=== PATIENT | female | born 1950 | race African-American/Black ===

== ENCOUNTER → 2016-07-28 | Outpatient (CLI) | payer MEDICARE, OTHER ==
[2015-07-10 11:05] VITALS: BP 127/75
[~2016-07-28] MED LIST: ASPI81TA9 PO; ATOR40TA PO; CALC-371 PO; CHOL10007 PO; CLOP75TA PO; CYCL10TA2 PO; CYPR4TAB PO; FLUT9.9S NS; FOLI1TAB6 PO; GUAI600T6 PO; HYDR-2679 PO; MELO15TA6 PO; METF500T4 PO; METO100T11 PO; PIME30CR2 TP; RANI150T6 PO; TRIA15CR3 TP; TRIA80OI TP
--- NOTE | 2016-07-28 11:29 | CARD ---
APPROVED REPORT EXAM: Two-dimensional and M-mode echocardiogram with Doppler and color Doppler. Other Information Quality : GoodHR: 94bpm Rhythm : NSR INDICATION Cardiac Disease: CAD RISK FACTORS Hypertension Obesity Hyperlipidemia Family History Diabetes Smoking Previous smoker 2D DIMENSIONS RVDd3.1 (2.9-3.5cm)Left Atrium(2D)3.5 (1.6-4.0cm) IVSd0.8 (0.7-1.1cm)Aortic Root(2D)2.8 (2.0-3.7cm) LVDd5.1 (3.9-5.9cm)LVOT Diameter2.1 (1.8-2.4cm) PWd0.7 (0.7-1.1cm)LVDs3.5 (2.5-4.0cm) FS (%) 30.9 %SV71.9 ml LVEF(%)58.2 (>50%) Aortic Valve AoV Peak Go.130.5cm/sAoV VTI27.0cm AO Peak GR.6.8mmHgLVOT Peak Go.82.8cm/s AO Mean GR.4mmHgAVA (VMAX)2.28cm2 Mitral Valve MV E Wfmuyauc51.8cm/sMV E Peak Gr.5mmHg MV DECEL [id number] A Mnsfywfq594.1cm/s MV E Mean Gr.2mmHgE/A Ratio0.6 MV A Mttvdrdq80xd Pulmonary Valve PV Peak Dnxtrmeg40.3cm/s Pulmonary Vein S1 Jubzuode72.8cm/sD2 Syjahndi69.9cm/s PVa uxyvccjr55lqac LEFT VENTRICLE The left ventricle is normal size. There is normal left ventricular wall thickness. The left ventricu lar systolic function is normal. The Ejection Fraction is 55%. There is normal LV segmental wall hawa on. Transmitral Doppler flow pattern is Grade I-abnormal relaxation pattern. RIGHT VENTRICLE The right ventricle is normal size. There is normal right ventricular wall thickness. The right ventr icular systolic function is normal. ATRIA The left atrium size is normal. The right atrium size is normal. The interatrial septum is intact wit h no evidence for an atrial septal defect or patent foramen ovale as noted on 2-D or Doppler imaging. AORTIC VALVE The aortic valve is mildly sclerotic. The aortic valve is trileaflet. Doppler and Color Flow revealed trace aortic regurgitation. There is no significant aortic valvular stenosis. MITRAL VALVE Mitral annular calcification is mild. The mitral valve leaflets are mildly thickened. There is no thu dence of mitral valve prolapse. There is no mitral valve stenosis. Doppler and Color Flow revealed mi ld mitral regurgitation. TRICUSPID VALVE Doppler and Color Flow revealed no tricuspid valve regurgitation noted. There is no pulmonary hyperte nsion. PULMONIC VALVE Doppler and Color Flow revealed no pulmonic valvular regurgitation. There is no pulmonic valvular flako nosis. GREAT VESSELS The aortic root is normal in size. The ascending aorta is normal in size. The pulmonary artery is nor mal. The IVC is normal in size and collapses >50% with inspiration. PERICARDIAL EFFUSION There is no evidence of significant pericardial effusion. Critical Notification Critical Value: No <Conclusion> The left ventricular systolic function is normal. The Ejection Fraction is 55%. There is normal LV segmental wall motion. Transmitral Doppler flow pattern is Grade I-abnormal relaxation pattern. Trace aortic regurgitation. Mild mitral regurgitation. There is no evidence of significant pericardial effusion.
== END | disposition home or self-care (01) ==
LOC: ECHO 09:58
PROVIDERS: ATTEND Internal Medicine Cardiovascular Disease
DX: I08.0 Rheumatic disorders of both mitral and aortic valves (principal); I25.10 Atherosclerotic heart disease of native coronary artery without angina pectoris
CPT/HCPCS: 93306

== ENCOUNTER → 2017-01-04 | Day surgery (SDC) | payer MEDICARE, OTHER ==
[~2017-01-04] MED LIST changes: +ASPI-612 PO; -ASPI81TA9 PO; +CHOL100014 PO; -CHOL10007 PO; +HYDROmorphone 2 MG/ML VIAL IV PRN; +IV RINGERS,LACTATED 1000ML 1,000 ML IV SCH; +LIDOCAINE 1% PF 2 ML VIAL. ID PRN; +LIDOCAINE 2% PF Vial for OR 5 ML VIAL. ONE; +METO-247 PO; -METO100T11 PO; +METOPROLOL TARTRATE 5 MG/5 ML VIAL. IVP ONE; +MORPHINE SULFATE 2 MG/ML DISP.SYRIN. IV PRN; +ONDANSETRON PF 4 MG/2 ML VIAL. IV PRN; +PROCHLORPERAZINE 10 MG/2 ML VIAL. IV PRN; +PROPOFOL 40 ML IV ONE; +fentaNYL PF VIAL 100 MCG/2 ML VIAL IV PRN
[2017-01-04 08:28] VITALS: BP 117/73
== END | disposition home or self-care (01) ==
LOC: ENDOS 06:35
PROVIDERS: ATTEND Internal Medicine Gastroenterology
DX: Z09 Encounter for follow-up examination after completed treatment for conditions other than malignant neoplasm (principal); Z86.010 Personal history of colon polyps; K64.0 First degree hemorrhoids; K57.30 Diverticulosis of large intestine without perforation or abscess without bleeding; I25.10 Atherosclerotic heart disease of native coronary artery without angina pectoris; E78.00 Pure hypercholesterolemia, unspecified; E11.51 Type 2 diabetes mellitus with diabetic peripheral angiopathy without gangrene; K21.9 Gastro-esophageal reflux disease without esophagitis; F17.200 Nicotine dependence, unspecified, uncomplicated; Z87.39 Personal history of other diseases of the musculoskeletal system and connective tissue; Z86.39 Personal history of other endocrine, nutritional and metabolic disease; Z88.6 Allergy status to analgesic agent
CPT/HCPCS: 45378; J2704; J3490; J2001

== ENCOUNTER → 2017-08-04 | Outpatient (CLI) | payer MEDICARE, OTHER | END | disposition home or self-care (01) | LOC: MAMMO 08:24 | DX: Z12.31 Encounter for screening mammogram for malignant neoplasm of breast (principal) | CPT/HCPCS: 77063; 77067 ==

== ENCOUNTER → 2017-09-21 | Outpatient (CLI) | payer MEDICARE, OTHER ==
[~2017-09-21] MED LIST changes: -ASPI-612 PO; -ATOR40TA PO; -CALC-371 PO; -CHOL100014 PO; -CLOP75TA PO; -CYCL10TA2 PO; -CYPR4TAB PO; -FLUT9.9S NS; -FOLI1TAB6 PO; -GUAI600T6 PO; -HYDR-2679 PO; -HYDROmorphone 2 MG/ML VIAL IV PRN; +IOHEXOL 300 MG/ML 50 ML VIAL. INT ART; -IV RINGERS,LACTATED 1000ML 1,000 ML IV SCH; -LIDOCAINE 1% PF 2 ML VIAL. ID PRN; -LIDOCAINE 2% PF Vial for OR 5 ML VIAL. ONE; -MELO15TA6 PO; -METF500T4 PO; -METO-247 PO; -METOPROLOL TARTRATE 5 MG/5 ML VIAL. IVP ONE; -MORPHINE SULFATE 2 MG/ML DISP.SYRIN. IV PRN; -ONDANSETRON PF 4 MG/2 ML VIAL. IV PRN; -PIME30CR2 TP; -PROCHLORPERAZINE 10 MG/2 ML VIAL. IV PRN; -PROPOFOL 40 ML IV ONE; -RANI150T6 PO; -TRIA15CR3 TP; -TRIA80OI TP; -fentaNYL PF VIAL 100 MCG/2 ML VIAL IV PRN
[2017-09-21] MEDS: IOHEXOL 180 MG/ML 10 ML VIAL. INT ART (11:10)
[2017-09-21] MEDS: LIDOCAINE 1% Multi-Dose 20 ML VIAL. ID (11:10)
== END | disposition home or self-care (01) ==
LOC: KCIC 10:04
DX: S43.491A Other sprain of right shoulder joint, initial encounter (principal); M75.121 Complete rotator cuff tear or rupture of right shoulder, not specified as traumatic; M19.011 Primary osteoarthritis, right shoulder; I10 Essential (primary) hypertension; E11.9 Type 2 diabetes mellitus without complications; E78.5 Hyperlipidemia, unspecified; K21.9 Gastro-esophageal reflux disease without esophagitis; X58.XXXA Exposure to other specified factors, initial encounter; Y93.89 Activity, other specified; Y92.89 Other specified places as the place of occurrence of the external cause; Y99.8 Other external cause status
CPT/HCPCS: 73040; 73201; Q9965

== ENCOUNTER → 2017-10-11 | Outpatient (CLI) | payer MEDICARE, OTHER ==
[2017-10-11 15:09] LABS: ADD MAN DIFF? NO
[2017-10-11 15:13] LABS: BASO # 0.1 x10^3/uL (0.0-0.2); BASO % 1 % (0-3); EOS # 0.3 x10^3/uL (0.0-0.7); EOS % 3 % (0-3); HEMATOCRIT 37.3 % (36.0-47.0); HEMOGLOBIN 12.4 g/dL (12.0-15.5); LYMPH # 2.9 x10^3/uL (1.0-4.8); LYMPH % 29 % (24-48); MEAN CORPUSCULAR HEMOGLOBIN 28 pg (25-35); MEAN CORPUSCULAR HGB CONC 33 g/dL (31-37); MEAN CORPUSCULAR VOLUME 83 fL (79-100); MONO # 0.8 x10^3/uL (0.0-1.1); MONO % 8 % (0-9); NEUT % 60 % (31-73); PLATELET COUNT 353 x10^3/uL (140-400); RED BLOOD COUNT 4.49 x10^6/uL (3.50-5.40); RED CELL DISTRIBUTION WIDTH 15.1 % (11.5-14.5); WHITE BLOOD COUNT 10.1 x10^3/uL (4.0-11.0)
[2017-10-11 15:14] LABS: BILIRUBIN,URINE NEGATIVE (NEG); CLARITY,URINE CLOUDY; COLOR,URINE YELLOW; GLUCOSE,URINE NEGATIVE (NEG); NITRITE,URINE NEGATIVE (NEG); PH,URINE 5.5; PROTEIN,URINE NEGATIVE (NEG-TRACE); UROBILINOGEN,URINE 0.2 mg/dL (0.2 mg/dL)
[2017-10-11 15:24] LABS: INR 0.9 (0.8-1.1); PARTIAL THROMBOPLASTIN TIME 27 SEC (24-38)
[2017-10-11 15:27] LABS: ALBUMIN 3.7 g/dL (3.4-5.0); ANION GAP 9 (6-14); BLOOD UREA NITROGEN 9 mg/dL (7-20); CALCIUM 9.7 mg/dL (8.5-10.1); CARBON DIOXIDE 27 mmol/L (21-32); CHLORIDE 105 mmol/L (98-107); GFR 66.9; GLUCOSE 98 mg/dL (70-99); POTASSIUM 4.4 mmol/L (3.5-5.1); SODIUM 141 mmol/L (136-145)
[2017-10-11 15:31] LABS: BACTERIA,URINE MANY /HPF (0-FEW); SQUAMOUS EPITHELIAL CELL,UR MANY /LPF; WBC,URINE >40 /HPF (0-4)
[2017-10-11 16:31] LABS: SEDIMENTATION RATE 22 (0-25)
[2017-10-12 00:16] LABS: MRSA BY PCR Negative (Negative)
[2017-10-12 03:22] LABS: HEMOGLOBIN A1C 6.6 % (4.8-5.6)
== END | disposition home or self-care (01) ==
LOC: SURGPAT 14:24
DX: Z01.818 Encounter for other preprocedural examination (principal); R94.31 Abnormal electrocardiogram [ECG] [EKG]; E11.9 Type 2 diabetes mellitus without complications; I10 Essential (primary) hypertension; E78.5 Hyperlipidemia, unspecified
CPT/HCPCS: 36415; 71046; 80048; 81001; 82040; 83036; 85025; 85610; 85651; 85730; 87086; 87641; 93005

== ENCOUNTER 2017-10-28 08:15 | Emergency (ER) | payer MEDICARE, OTHER ==
[~2017-10-28] VITALS: Ht 162.6 cm; Wt 96.2 kg
[~2017-10-28 08:15] MED LIST changes: +ASPI-612 PO; +ATOR40TA PO; +CALC-371 PO; +CHOL100014 PO; +CLOP75TA PO; +CYCL10TA2 PO; +CYPR4TAB31 PO; +DOCU-109 PO; +FLUT9.9S NS; +FOLI1TAB6 PO; +GLUC1TAB69 PO; +GUAI600T6 PO; +HYDR-2679 PO; +HYDR15CR20 TP; -IOHEXOL 300 MG/ML 50 ML VIAL. INT ART; +MELO15TA6 PO; +METF500T5 PO; +METO-247 PO; +NITR0.4T22 SL; +OXYC-323 PO; +PIME30CR2 TP; +RANI150T21 PO; +TRIA15CR3 TP; +TRIA80OI TP
[2017-10-28 08:21] VITALS: BP 144/73
--- NOTE | 2017-10-28 08:30 | PHYS DOC ---
Adult General Chief Complaint Chief Complaint: OTHER COMPLAINTS HPI HPI Patient is a 66 year old female presents to the ED for wound check. States she had rotator cuff surgery by Dr. Burch on last Monday. States she had some of the dressing fall out and wanted to get it checked out. Denies fever, drainage, headache, weakness, nausea/vomiting or redness. Review of Systems Review of Systems Constitutional: Denies fever or chills [] Eyes: Denies change in visual acuity, redness, or eye pain [] HENT: Denies nasal congestion or sore throat [] Respiratory: Denies cough or shortness of breath [] Cardiovascular: No additional information not addressed in HPI [] GI: Denies abdominal pain, nausea, vomiting, bloody stools or diarrhea [] : Denies dysuria or hematuria [] Musculoskeletal: Denies back pain or joint pain [] Integument: Denies rash or skin lesions [] Neurologic: Denies headache, focal weakness or sensory changes [] All other systems were reviewed and found to be within normal limits, except as documented in this note. Allergies Allergies Allergies Coded Allergies Type Severity Reaction Last Updated Verified aspirin Allergy Mild STOMACH PAIN 10/25/17 Yes Physical Exam Physical Exam Constitutional: Well developed, well nourished, no acute distress, non-toxic appearance. [] HENT: Normocephalic, atraumatic Neck: Normal range of motion, no tenderness, supple, no stridor. [] Cardiovascular:Heart rate regular rhythm, no murmur [] Lungs & Thorax: Bilateral breath sounds clear to auscultation [] Skin: Warm, dry, no erythema, no rash. [] Back: No tenderness, no CVA tenderness. [] Extremities: Right shoulder surgical incisions healing well. C/D/I. No signs of infection, drainage, or dehiscence. no bony tenderness, no cyanosis, no clubbing , NV intact, no edema. [] Neurologic: Alert and oriented X 3, normal motor function, normal sensory function, no focal deficits noted. [] Psychologic: Affect normal, judgement normal, mood normal. [] Current Patient Data Vital Signs Vital Signs Date Time Temp Pulse Resp B/P (MAP) Pulse Ox O2 Delivery O2 Flow Rate FiO2 10/28/17 08:21 98.1 73 16 144/73 (96) 97 98.1 EKG EKG [] Radiology/Procedures Radiology/Procedures [] Course & Med Decision Making Course & Med Decision Making Pertinent Labs and Imaging studies reviewed. (See chart for details) []Wound healing well. No complications. Dressing change for patient. Patient scheduled for follow-up with her orthopedic doctor this coming week. Discussed reasons to return to the ED. Patient understands and agrees with plan. Family at bedside. Staff Physician Addendum: I was working in the ER during the course of this patient's visit. I was available for consultation as needed, but I was not directly involved in the care of this patient. Stefano Barger DO Staff Physician Dragon Disclaimer Dragon Disclaimer This electronic medical record was generated, in whole or in part, using a voice recognition dictation system. Departure Departure Impression: Primary Impression: Visit for wound check Disposition: 01 HOME, SELF-CARE Condition: STABLE Referrals: ESPERANZA ESTRADA MD (PCP) OLY BURCH II, MD Patient Instructions: Wound Check DIVINA HERNANDEZ Oct 28, 2017 08:30 STEFANO BARGER DO Oct 29, 2017 06:18
== END 2017-10-28 08:39 | disposition home or self-care (01) ==
LOC: ER 08:15
DX: Z48.01 Encounter for change or removal of surgical wound dressing (principal); Z88.2 Allergy status to sulfonamides
CPT/HCPCS: 99283

== ENCOUNTER → 2018-01-10 | Outpatient (CLI) | payer MEDICARE, OTHER ==
[2017-01-04 08:28] VITALS: BP_DIAS 73
[2017-10-28 08:21] VITALS: BP_SYST 144
[~2018-01-10] MED LIST changes: +METF500T16 PO; -METF500T5 PO
--- NOTE | 2018-01-10 10:15 | CARD ---
MR#: [id number] Date of Study: 01/10/2018 Ordering Physician: BLOSSOM WEBBER, Referring Physician: BLOSSOM WEBBER Tech: Hellen Velez RDCS APPROVED REPORT EXAM: Two-dimensional and M-mode echocardiogram with Doppler and color Doppler. Other Information Quality : GoodHR: 81bpm Rhythm : NSR INDICATION Cardiac Disease: CAD 2D DIMENSIONS RVDd2.2 (2.9-3.5cm)Left Atrium(2D)3.3 (1.6-4.0cm) IVSd0.9 (0.7-1.1cm)Aortic Root(2D)2.8 (2.0-3.7cm) LVDd4.7 (3.9-5.9cm)LVOT Diameter1.9 (1.8-2.4cm) PWd1.1 (0.7-1.1cm)LVDs3.5 (2.5-4.0cm) FS (%) 25.3 %SV50.5 ml M-Mode DIMENSIONS Left Atrium(MM)2.80 (2.5-4.0cm)Aortic Root2.86 (2.2-3.7cm) Aortic Valve AoV Peak Go.136.2cm/sAoV VTI26.2cm AO Peak GR.7.4mmHgLVOT Peak Go.65.6cm/s AO Mean GR.4mmHgAVA (VMAX)1.41cm2 ZO (VTI)1.70cm2 Mitral Valve MV E Xldlmera40.2cm/sMV E Peak Gr.3mmHg MV DECEL VKPE679tzSH A Wqntbzoq59.0cm/s MV E Mean Gr.1mmHgE/A Ratio0.8 MV A Groxkwtb645ak Pulmonary Valve PV Peak Iyuajpsx50.5cm/s LEFT VENTRICLE The left ventricle is normal size. There is normal left ventricular wall thickness. The left ventricu lar systolic function is normal and the ejection fraction is within normal range. The Ejection Fracti on is 50-55%. There is normal LV segmental wall motion. Transmitral Doppler flow pattern is Grade I-a bnormal relaxation pattern. RIGHT VENTRICLE The right ventricle is normal size. There is normal right ventricular wall thickness. The right ventr icular systolic function is normal. ATRIA The left atrium size is normal. The right atrium size is normal. The interatrial septum is intact wit h no evidence for an atrial septal defect or patent foramen ovale as noted on 2-D or Doppler imaging. AORTIC VALVE The aortic valve is trileaflet. The aortic valve is normal in structure and function. Doppler and Col or Flow revealed no significant aortic regurgitation. There is no significant aortic valvular stenosi s. MITRAL VALVE The mitral valve is normal in structure and function. There is no evidence of mitral valve prolapse. There is no mitral valve stenosis. Doppler and Color-flow revealed trace mitral regurgitation. TRICUSPID VALVE The tricuspid valve is normal in structure and function. Doppler and Color Flow revealed no tricuspid valve regurgitation noted. There is no tricuspid valve prolapse or vegetation. There is no tricuspid valve stenosis. PULMONIC VALVE Not well visualized. GREAT VESSELS The aortic root is normal in size. The ascending aorta is normal in size. PERICARDIAL EFFUSION There is no evidence of significant pericardial effusion. Critical Notification Critical Value: No <Conclusion> The left ventricle is normal size. The left ventricular systolic function is normal and the ejection fraction is within normal range. The Ejection Fraction is 50-55%. There is no significant aortic valvular stenosis. Doppler and Color Flow revealed no significant aortic regurgitation. Doppler and Color-flow revealed trace mitral regurgitation. Doppler and Color Flow revealed no tricuspid valve regurgitation noted. Signed by : Ryne Henderson MD Electronically Approved : 01/10/2018 10:14:42
== END | disposition home or self-care (01) ==
LOC: ECHO 08:58
PROVIDERS: ATTEND Internal Medicine Cardiovascular Disease
DX: I25.10 Atherosclerotic heart disease of native coronary artery without angina pectoris (principal)
CPT/HCPCS: 93306

== ENCOUNTER → 2018-08-08 | Outpatient (CLI) | payer MEDICARE, OTHER ==
[~2018-08-08] MED LIST changes: -OXYC-323 PO; +OXYC1TAB15 PO; +RANI-376 PO; -RANI150T21 PO
--- NOTE | 2018-08-08 10:03 | RAD ---
DATE: 08/08/2018 EXAM: MAMMO GINA SCREENING BILATERAL HISTORY: Routine screening COMPARISON: 08/04/2017 This study was interpreted with the benefit of Computerized Aided Detection (CAD). Breast Density: HETERO The breast parenchyma is heterogenously dense, which could reduce sensitivity of mammography. Breast parenchyma level C. FINDINGS: 2-D and 3-D tomosynthesis imaging was performed in CC and MLO projections. Smooth 12:00 retroareolar and posterolateral nodules in the right breast appear unchanged. No spiculated mass or architectural distortion is evident. Scattered benign type calcifications are present. No suspicious microcalcifications have developed. IMPRESSION: Stable mammograms without evidence of malignancy. BI-RADS CATEGORY: 2 BENIGN FINDING(S) RECOMMENDED FOLLOW-UP: 12M 12 MONTH FOLLOW-UP PQRS compliance statement: Patient information was entered into a reminder system with a target due date for the next mammogram. Mammography is a sensitive method for finding small breast cancers, but it does not detect them all and is not a substitute for careful clinical examination. A negative mammogram does not negate a clinically suspicious finding and should not result in delay in biopsying a clinically suspicious abnormality. "Our facility is accredited by the [employer] Mammography Program."
== END | disposition home or self-care (01) ==
LOC: MAMMO 08:53
PROVIDERS: ATTEND Family Medicine
DX: Z12.31 Encounter for screening mammogram for malignant neoplasm of breast (principal)
CPT/HCPCS: 77063; 77067

== ENCOUNTER → 2019-01-17 | Outpatient (CLI) | payer MEDICARE, OTHER ==
--- NOTE | 2019-01-17 17:01 | KCIC ---
EXAM: RIGHT TIBIA/FIBULA 2 VIEWS. HISTORY: Right leg pain. COMPARISON: None. FINDINGS: No fractures are identified. An ossicle at the inferior pole of the patella suggests chronic Vpfcdnc-Kqmtmc-Irdutuxxp syndrome versus enthesopathy. There is also enthesopathic ossification at the patellar superior pole. Scattered phleboliths and atherosclerotic calcifications are noted. 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 The joint spaces and alignment of the knee and ankle appear grossly maintained. IMPRESSION: 1. No cause for acute pain is identified. Electronically signed by: Annamaria Saxena MD (01/17/2019 4:58 PM) [facility]
== END | disposition home or self-care (01) ==
LOC: KCIC 14:07
PROVIDERS: ATTEND Nurse Practitioner Gerontology
DX: M19.071 Primary osteoarthritis, right ankle and foot (principal); I87.8 Other specified disorders of veins
CPT/HCPCS: 73590

== ENCOUNTER → 2019-02-12 | Outpatient (CLI) | payer MEDICARE, OTHER ==
[~2019-02-12] MED LIST changes: +NYST100054 PO; +REGADENOSON 0.4 MG/5 ML DISP.SYRIN. IV ONE
--- NOTE | 2019-02-13 11:00 | RAD ---
MR#: [id number] Date of Study: 02/13/2019 Ordering Physician: BLOSSOM WEBBER, Referring Physician: MARY BETH TORRES Tech: AILYN Kurtz, ARRT (R) (N) APPROVED REPORT Test Type: Pharmacological Stress Nurse/Tech: Sandy Jean Baptiste R.N. Test Indications: cad Cardiac History: stents x 4, dm, cad Medications: see ehr Medical History: see ehr Resting ECG: sr see printout Resting Heart Rate: 84 bpm Resting Blood Pressure: 138/70mmHg Pretest Chest Pain: No chest pain Nurse/Tech Notes lungs cta, heart tones regular Consent: The procedure was explained to the patient in lay terms. Informed consent was witnessed. Cordell eout was entered into [employer]. History and Stress Test performed by RT João (R) (N) Pharm. Details Pharmacologic stress testing was performed using 0.4mg per 5ml of regadenoson given intravenously ove r 7-10 seconds. Stress Symptoms No chest pain or symptoms. POST EXERCISE Reason for Termination: Infusion complete Target HR: No Max HR: 111 bpm Max Blood Pressure: 129/64mmHg Chest Pain: No. Arrhythmia: Yes. occasional unifocal PVC noted ST Change: Yes. ST elevation increased and then resolved to baseline in II and III INTERPRETATION Stress EKG Conclusion: No evidence of stress induced EKG changes Imaging Protocol IMAGE PROTOCOL: Rest Tc-99m/stress Tc-99m 2 days Rest: Stress: Viability: Radiopharm.Tc99m UsaejdfejKy14y Sestamibi Ngwz36bQr 31.6mCi Img Date 02/12/2019 02/13/2019 Inj-Img Chqn51cmm. 60min. Rest Admin Site:IV - Left AntecubitalAdministrator:RT Laurie Moyer)(N) Stress Admin Site: IV - Left AntecubitalAdministrator: RT Laurie Moyer)(N) STRESS DATA End Diast. Vol.65.0mlAv. Heart Rate88.0bpm End Syst. Vol.24.0mlCO Index BSA3.7L/min Myocardial Oxle111.0gEject. Vhkjhilu39.0% Stress Rates Pk. Fill Rate3.87EDV/secLVtime Pk. Fill 113.19msec Pk. Empty Rate3.86ESV/secLVtime Pk. Eject81.63msec / Pk. Fill1.92EDV/sec Stress Scores Regional WT2.00Summed WT23.00 Regional WM0.00Summed WM5.00 LV Perfusion Normal perfusion with stress images. There is significant motion artifact. No significant abnormaliti es on the stress images. Rest images are degraded by attenuation artifact. LV Perf. Quant 17 Seg. SSS1.00 17 Seg. SRS9.00 17 Seg. SDS0.00 Stress Defect Extent (% LAD)0.00Rest Defect Extent (% LAD)7.50Rev. Defect Extent (% LAD)0.00 Stress Defect Extent (% LCX) 0.00Rest Defect Extent (% LCX)62.50Rev. Defect Extent (% LCX)0.00 Stress Defect Extent (% RCA)0.00Rest Defect Extent (% RCA)0.00Rev. Defect Extent (% RCA)0.00 Stress Defect Extent (% FROY)0.00Rest Defect Extent (% FROY)15.20Rev. Defect Extent (% FROY)0.00 Other Information Quality:Fair Risk Assessment: Low Risk Conclusion 1. No evidence of EKG changes with stress testing. 2. Normal perfusion at stress. Rest images are degraded due to motion artifact and attenuation. 3. Low risk study. 4. EF > 60%. Signed by : Raheem Gandhi, Electronically Approved : 02/13/2019 11:00:09
== END ==
LOC: NM 07:37
PROVIDERS: ATTEND Internal Medicine Cardiovascular Disease
DX: I25.10 Atherosclerotic heart disease of native coronary artery without angina pectoris (principal); I10 Essential (primary) hypertension; E11.9 Type 2 diabetes mellitus without complications; E78.00 Pure hypercholesterolemia, unspecified; M19.90 Unspecified osteoarthritis, unspecified site; K21.9 Gastro-esophageal reflux disease without esophagitis; Z87.891 Personal history of nicotine dependence
CPT/HCPCS: 78452; A9500; J2785

== ENCOUNTER → 2019-02-13 | Outpatient (CLI) | payer MEDICARE, OTHER ==
--- NOTE | 2019-02-13 11:09 | RAD ---
MR#: [id number] Date of Study: 02/13/2019 Ordering Physician: BLOSSOM WEBBER, Referring Physician: BLOSSOM WEBBER, Tech: Antonino Younger MBA, RDMS, RVT, RDCS, RTR APPROVED REPORT Patient Location: OUT-PATIENT Indications CAD VELOCITY AND DOPPLER WAVEFORM ANALYSIS RIGHT cm/secWaveformSeverity LEFT cm/secWaveform Severity dCFA 152.0TriphasicdCFA 176.0Triphasic Prof Fem Art. 96.0TriphasicProf Fem Art. 89.0Triphasic Fem Art Prox. 146.0TriphasicFem Art Prox. 116.0Triphasic Fem Art Mid. 114.0TriphasicFem Art Mid. 116.0Triphasic Fem Art Dist. 114.0TriphasicFem Art Dist. 129.0Triphasic Pop Art(Fossa) 60.0TriphasicPop Art(AK) 62.0Biphasic STAFFING ASSOCIATE Prox. 43.0BiphasicPTA Prox. 63.0Biphasic STAFFING ASSOCIATE Dist. 48.0BiphasicPTA Dist. 60.0Biphasic Per Art Mid. 46.0BiphasicPer Art Mid. 39.0Biphasic ABDIEL Prox. 50.0BiphasicATA Prox. 56.0Biphasic DPA 44BiphasicDPA 44Biphasic Findings Grayscale images demonstrate mild diffuse irregularities without any focal high-grade obstruction. Spectral waveforms and color Doppler involving the bilateral lower extremities are mostly triphasic a nd biphasic with robust three-vessel runoff below the knee. No focal high-grade stenosis is identifie d. The bilateral common femoral arterial velocities are mildly elevated but no clear stenosis is noted g iven excellent triphasic waveforms distal to the common femoral arteries. Critical Notification Critical Value: No <Conclusion> 1. No significant bilateral lower extremity arterial disease with robust three-vessel runoff Signed by : Raheem Gandhi, Electronically Approved : 02/13/2019 11:09:33
--- NOTE | 2019-02-13 11:14 | CARD ---
MR#: [id number] Date of Study: 02/13/2019 Ordering Physician: BLOSSOM WEBBER, Referring Physician: BLOSSOM WEBBER Tech: Vivien Otoole RDCS APPROVED REPORT EXAM: Two-dimensional and M-mode echocardiogram with Doppler and color Doppler. Other Information Quality : Good INDICATION Cardiac Disease: CAD 2D DIMENSIONS RVDd2.7 (2.9-3.5cm)Left Atrium(2D)3.0 (1.6-4.0cm) IVSd0.8 (0.7-1.1cm)Aortic Root(2D)2.6 (2.0-3.7cm) LVDd4.9 (3.9-5.9cm)LVOT Diameter2.1 (1.8-2.4cm) PWd0.9 (0.7-1.1cm)LVDs3.9 (2.5-4.0cm) FS (%) 19.0 %SV43.2 ml LVEF(%)50.0 (>50%) Aortic Valve AoV Peak Go.136.8cm/sAoV VTI23.1cm AO Peak GR.7.5mmHgLVOT Peak Go.90.5cm/s AO Mean GR.5mmHgAVA (VMAX)2.20cm2 ZO (VTI)2.20cm2 Mitral Valve MV E Llfqavar42.8cm/sMV DECEL AMHT479sd MV A Xdvgbcui64.0cm/sE/A Ratio0.6 Tricuspid Valve TR P. Hxhoskat051xo/sRAP LKSZLPYH6ftPm TR Peak Gr.36hwUcNYTG98pbNb Pulmonary Vein S1 Pkrgviyp35.7cm/sD2 Lxytwokt89.5cm/s LEFT VENTRICLE The left ventricle is normal size. There is normal left ventricular wall thickness. Left ventricle sy stolic function is low normal. The Ejection Fraction is 50-55%. There is normal LV segmental wall mot ion. Transmitral Doppler flow pattern is Grade I-abnormal relaxation pattern. RIGHT VENTRICLE The right ventricle is normal size. The right ventricular systolic function is normal. ATRIA The left atrium size is normal. The right atrium size is normal. The interatrial septum is intact wit h no evidence for an atrial septal defect or patent foramen ovale as noted on 2-D or Doppler imaging. AORTIC VALVE The aortic valve is calcified but opens well. Doppler and Color Flow revealed no significant aortic r egurgitation. There is no significant aortic valvular stenosis. MITRAL VALVE The mitral valve is calcified but opens well. Mitral annular calcification is mild. There is no evide nce of mitral valve prolapse. There is no mitral valve stenosis. Doppler and Color-flow revealed trac e to mild mitral regurgitation. TRICUSPID VALVE The tricuspid valve is normal in structure and function. Doppler and Color Flow revealed trace tricus pid regurgitation. The PA pressure was estimated at 22 mmHg. There is no tricuspid valve stenosis. PULMONIC VALVE The pulmonic valve is not well visualized. Doppler and Color Flow revealed no pulmonic valvular regur gitation. There is no pulmonic valvular stenosis. GREAT VESSELS The aortic root is normal in size. The ascending aorta is normal in size. The IVC is normal in size a nd collapses >50% with inspiration. PERICARDIAL EFFUSION There is no evidence of significant pericardial effusion. Critical Notification Critical Value: No <Conclusion> Left ventricle systolic function is low normal. The Ejection Fraction is 50-55%. There is normal LV segmental wall motion. Signed by : Raheem Gandhi, Electronically Approved : 02/13/2019 11:14:22
== END | disposition home or self-care (01) ==
LOC: ECHO 13:27
PROVIDERS: ATTEND Internal Medicine Cardiovascular Disease
DX: I08.0 Rheumatic disorders of both mitral and aortic valves (principal); I25.10 Atherosclerotic heart disease of native coronary artery without angina pectoris
CPT/HCPCS: 93017; 93306; 93925; 96376

== ENCOUNTER → 2019-03-04 | Outpatient (CLI) | payer MEDICARE, OTHER ==
[~2019-03-04] MED LIST changes: -REGADENOSON 0.4 MG/5 ML DISP.SYRIN. IV ONE
--- NOTE | 2019-03-04 14:11 | RAD ---
MR#: [id number] Date of Study: 03/04/2019 Ordering Physician: BLOSSOM WEBBER, Referring Physician: BLOSSOM WEBBER, Tech: Antonino Younger MBA, RDMS, RVT, RDCS, RTR APPROVED REPORT Patient Location : OUT-PATIENT Indications Lower Extremity Pain : Bilateral Findings Bilateral saphenofemoral junctions do not reveal any obvious evidence of thrombus on medina scale image s The right great saphenous vein measures 5.8 mm and the left great saphenous vein measures 6.5 mm. No evidence of reflux is noted in these superficial veins. Bilateral lesser saphenous veins also do not reveal any evidence of reflux. Critical Notification Critical Value: No <Conclusion> Negative for reflux in the bilateral greater and lesser saphenous veins Signed by : Raheem Gandhi, Electronically Approved : 03/04/2019 14:10:57
== END | disposition home or self-care (01) ==
LOC: US 12:05
PROVIDERS: ATTEND Internal Medicine Cardiovascular Disease
DX: M79.605 Pain in left leg (principal); M79.604 Pain in right leg
CPT/HCPCS: 93970

== ENCOUNTER → 2019-12-06 | Outpatient (CLI) | payer MEDICARE, OTHER ==
[~2019-12-06] MED LIST changes: -ASPI-612 PO; +ASPI-886 PO
== END | disposition home or self-care (01) ==
LOC: LAB 13:50
PROVIDERS: ATTEND Orthopaedic Surgery Sports Medicine
DX: Z20.828 Contact with and (suspected) exposure to other viral communicable diseases (principal)
CPT/HCPCS: U0003-CS

== ENCOUNTER → 2020-01-28 | Outpatient (CLI) | payer MEDICARE, OTHER ==
--- NOTE | 2020-01-28 15:17 | RAD ---
DATE: 01/28/2020 8:33 AM EXAM: MAMMO GINA SCREENING BILATERAL HISTORY: Screening COMPARISON: 08/08/2018, 08/04/2017 Bilateral CC and MLO views of the breasts were performed. Bilateral breast tomosynthesis was performed in CC and MLO projections. This study was interpreted with the benefit of Computerized Aided Detection (CAD). FINDINGS: Breast Density: SCATTERED The breast parenchyma shows scattered fibroglandular densities. Breast parenchyma level B No suspicious masses, microcalcifications or architectural distortion is present to suggest malignancy in either breast. The visualized axillae are unremarkable. IMPRESSION: No mammographic evidence of malignancy. BI-RADS CATEGORY: 1 NEGATIVE RECOMMENDED FOLLOW-UP: 12M 12 MONTH FOLLOW-UP Annual screening mammography is recommended, unless clinically indicated sooner based on symptoms or change in physical exam. PQRS compliance statement: Patient information was entered into a reminder system with a target due date for the next mammogram. Mammography is a sensitive method for finding small breast cancers, but it does not detect them all and is not a substitute for careful clinical examination. A negative mammogram does not negate a clinically suspicious finding and should not result in delay in biopsying a clinically suspicious abnormality. "Our facility is accredited by the [employer] Mammography Program."
== END ==
LOC: MAMMO 08:06
PROVIDERS: ATTEND Family Medicine
DX: Z12.31 Encounter for screening mammogram for malignant neoplasm of breast (principal)
CPT/HCPCS: 77063; 77067

== ENCOUNTER → 2020-02-13 | Outpatient (CLI) | payer MEDICARE, OTHER ==
--- NOTE | 2020-02-14 10:27 | RAD ---
MR#: [id number] Date of Study: 02/13/2020 Ordering Physician: BLOSSOM WEBBER, Referring Physician: BLOSSOM WEBBER, Tech: APPROVED REPORT Patient Location: OUT-PATIENT Laterality:Bilateral Indications Bruit Risk Factors CAD, Doppler Spectral Velocity Analysis Right Left pCCA 93/17 cm/spCCA 124/26 cm/s mCCA 116/27 cm/smCCA 115/24 cm/s dCCA 72/21 cm/sdCCA 92/22 cm/s ECA 67/ cm/sECA 109/ cm/s pICA 51/14 cm/spICA 65/18 cm/s Hill 57/16 cm/smICA 76/28 cm/s dICA 53/19 cm/sdICA 64/22 cm/s ICA/CCA 0.49ICA/CCA 0.61 Findings Grayscale images of the bilateral common carotid, external and internal carotid vessels demonstrates mild intimal hyperplasia with mild plaque located mostly at the level of the carotid bulbs. Spectral waveforms and color Doppler demonstrate overall 0 to less than 50% stenosis bilaterally with antegra de vertebral velocities which are normal. Normal ICA to CCA ratios. No focal stenosis identified. Critical Notification Critical Value: No <Conclusion> 1. No significant carotid occlusive disease bilaterally. Signed by : Raheem Gandhi, Electronically Approved : 02/13/2020 11:28:38
--- NOTE | 2020-02-14 10:27 | CARD ---
MR#: [id number] Date of Study: 02/13/2020 Ordering Physician: BLOSSOM WEBBER, Referring Physician: BLOSSOM WEBBER, Michael: Jo Rosa APPROVED REPORT EXAM: Two-dimensional and M-mode echocardiogram with Doppler and color Doppler. Other Information Quality : AverageHR: 80bpm Rhythm : NSR INDICATION Cardiac Disease: CAD 2D DIMENSIONS Left Atrium(2D)3.2 (1.6-4.0cm)IVSd1.0 (0.7-1.1cm) Aortic Root(2D)2.6 (2.0-3.7cm)LVDd3.7 (3.9-5.9cm) LVOT Diameter1.9 (1.8-2.4cm)PWd1.1 (0.7-1.1cm) LVDs3.3 (2.5-4.0cm)FS (%) 10.9 % SV14.0 ml Aortic Valve AoV Peak Go.150.8cm/Luan Peak GR.9.1mmHg LVOT Peak Go.83.4cm/sAVA (VMAX)1.54cm2 Mitral Valve MV E Cvficpid70.5cm/sMV DECEL [id number] MV A Uzcqnisx99.6cm/sE/A Ratio0.7 MV A Phazvizg249vd Pulmonary Valve PV Peak Qbwwsrqs30.3cm/s Pulmonary Vein S1 Lphftaxq11.7cm/sD2 Njqktuhw12.1cm/s PVa [id number] LEFT VENTRICLE The left ventricle is normal size. There is normal left ventricular wall thickness. The left ventricu lar systolic function is normal. The Ejection Fraction is 50-55%. There is normal LV segmental wall m otion. Transmitral Doppler flow pattern is Grade I-abnormal relaxation pattern. RIGHT VENTRICLE The right ventricle is normal size. There is normal right ventricular wall thickness. The right ventr icular systolic function is normal. ATRIA The left atrium size is normal. The right atrium size is normal. The interatrial septum is intact wit h no evidence for an atrial septal defect or patent foramen ovale as noted on 2-D or Doppler imaging. AORTIC VALVE The aortic valve is mildly thickened. Doppler and Color Flow revealed no significant aortic regurgita tion. There is no significant aortic valvular stenosis. There is no aortic valvular vegetation. MITRAL VALVE The mitral valve is normal in structure and function. There is no mitral valve stenosis. Doppler and Color Flow revealed trace to mild mitral regurgitation. TRICUSPID VALVE The tricuspid valve is normal in structure and function. Doppler and Color Flow revealed no tricuspid valve regurgitation noted. There is no tricuspid valve stenosis. PULMONIC VALVE Doppler and Color Flow revealed no pulmonic valvular regurgitation. There is no pulmonic valvular flako nosis. GREAT VESSELS The aortic root is normal in size. The ascending aorta is normal in size. The IVC is normal in size a nd collapses >50% with inspiration. PERICARDIAL EFFUSION There is no pleural effusion. There is no evidence of significant pericardial effusion. Critical Notification Critical Value: No <Conclusion> The left ventricular systolic function is normal. The Ejection Fraction is 50-55%. There is normal LV segmental wall motion. Signed by : Raheem Gandhi, Electronically Approved : 02/13/2020 11:58:41
== END ==
LOC: US 06:34
PROVIDERS: ATTEND Internal Medicine Cardiovascular Disease
DX: I34.0 Nonrheumatic mitral (valve) insufficiency (principal); I65.23 Occlusion and stenosis of bilateral carotid arteries; I25.10 Atherosclerotic heart disease of native coronary artery without angina pectoris
CPT/HCPCS: 93306; 93880

== ENCOUNTER → 2020-03-02 | Outpatient (CLI) | payer MEDICARE, OTHER ==
--- NOTE | 2020-03-03 09:00 | KCIC ---
EXAM: MRI right shoulder DATE: 03/02/2020 3:42 PM COMPARISON: None INDICATION: Reason: Right shoulder pain 6-7 months, recent worsening pain. / Spl. Instructions: Spoke w/pt about motion / History: Previous surgery 2017-rotator cuff. TECHNIQUE: Multiplanar, multisequence MRI of the right shoulder was performed without contrast. FINDINGS: AC joint degenerative changes are seen with small inferior projecting osteophytes. No os acromiale. T ype II acromion. Subacromial subdeltoid bursal fluid from rotator cuff tear described below. There is superior migration of the humeral head with articulation with the acromion. Screw tracks/ten don anchors are seen within the humeral head from prior rotator cuff repair. There is a full-thicknes s, full width tear of the supraspinatus and infraspinatus tendon measuring approximately 5 cm in AP d imension. Moderate fatty atrophy of the supra space and infraspinatus muscle bellies. Retraction is s een to the level of the glenoid. Biceps tendon is not identified, likely from prior tenotomy. Diminutive appearance of the labrum part icularly posteriorly and inferiorly likely from diffuse degeneration/tear. Shoulder joint degenerative changes are seen with glenohumeral joint osteophytes and mild chondral th inning. IMPRESSION: 1. Full-thickness, full width tear of the supraspinatus and infraspinatus tendons measuring approxim ately 5 cm in AP dimension with associated moderate fatty atrophy of the supraspinatus and infraspina tus muscle bellies. 2. Labral tear/degeneration particularly posteriorly and inferiorly Electronically signed by: Joshua Callahan MD (03/03/2020 8:57 AM) [id number]
== END ==
LOC: KCIC MRI 15:18
PROVIDERS: ATTEND Orthopaedic Surgery
DX: M75.101 Unspecified rotator cuff tear or rupture of right shoulder, not specified as traumatic (principal); M25.711 Osteophyte, right shoulder; M62.511 Muscle wasting and atrophy, not elsewhere classified, right shoulder; M25.511 Pain in right shoulder
CPT/HCPCS: 73221

== ENCOUNTER → 2020-04-29 | Outpatient (CLI) | payer MEDICARE, OTHER ==
[~2020-04-29] MED LIST changes: +CICL6.6S3 TP; +CILO100T PO; +DICL100G54 TP; +FAMO-63 PO; +FLUO15CR TP; +GABA300C18 PO; +HYDR-2761 PO; +HYDR-2765 PO; +METF10007 PO; +METH57CR17 TP; +MULT400T3 PO; +NYST15PO9 TP; +POTA10TA12 PO; +RIVA10TA PO; +TIZA4TAB2 PO
--- NOTE | 2020-04-29 08:53 | EKG ---
[facility] [address] [place] [address] Test Date: 2020-04-29 Test Time: 08:46:59 Pat Name: DENNYS GONGORA Department: Room: Gender: F Telemetry Monitor: ZIGGY : 1950 Requested By: ANDERSON CESPEDES Order Number: [id number] Reading MD: Raheem Gandhi MD Measurements Intervals Warren Rate: 68 P: 59 TX: 164 QRS: 21 QRSD: 82 T: 57 QT: 396 QTc: 421 Interpretive Statements SINUS RHYTHM CONSIDER INFERIOR ISCHEMIA Electronically Signed On 04-30-2020 10:29:55 MACHINE TRY OUT SETTER by Raheem Gandhi MD
[2020-04-29 08:54] LABS: BASO # 0.1 x10^3/uL (0.0-0.2); BASO % 1 % (0-3); EOS # 0.4 x10^3/uL (0.0-0.7); EOS % 5 % (0-3); HEMATOCRIT 31.9 % (36.0-47.0); HEMOGLOBIN 10.5 g/dL (12.0-15.5); LYMPH # 2.3 x10^3/uL (1.0-4.8); LYMPH % 31 % (24-48); MEAN CORPUSCULAR HEMOGLOBIN 28 pg (25-35); MEAN CORPUSCULAR HGB CONC 33 g/dL (31-37); MEAN CORPUSCULAR VOLUME 84 fL (79-100); MONO # 0.6 x10^3/uL (0.0-1.1); MONO % 8 % (0-9); NEUT # 4.2 x10^3/uL (1.8-7.7); NEUT % 55 % (31-73); PLATELET COUNT 273 x10^3/uL (140-400); RED CELL DISTRIBUTION WIDTH 14.8 % (11.5-14.5); WHITE BLOOD COUNT 7.6 x10^3/uL (4.0-11.0)
[2020-04-29 09:04] LABS: ALBUMIN 3.3 g/dL (3.4-5.0); ANION GAP 9 (6-14); BLOOD UREA NITROGEN 20 mg/dL (7-20); CALCIUM 9.8 mg/dL (8.5-10.1); CARBON DIOXIDE 26 mmol/L (21-32); CHLORIDE 105 mmol/L (98-107); CREATININE 1.8 mg/dL (0.6-1.0); GFR 33.7; GLUCOSE 150 mg/dL (70-99); SODIUM 140 mmol/L (136-145)
[2020-04-29 09:05] LABS: C-REACTIVE PROTEIN < 0.5 mg/L (0-3.3)
[2020-04-29 09:16] LABS: PROTHROMBIN TIME PATIENT 14.7 SEC (11.7-14.0)
--- NOTE | 2020-04-29 09:55 | RAD ---
EXAM: Chest, 2 views. HISTORY: Preoperative evaluation. COMPARISON: 10/11/2017 FINDINGS: 2 views of the chest are obtained. There is focal lateral left upper lobe infiltrate or sca rring. There is no consolidation, pleural effusion or pneumothorax. The heart is normal in size. IMPRESSION: Lateral left upper lobe opacity due to suspected infiltrate or scarring. This is new comp ared to the prior study. Short-term radiographic follow-up can be performed to confirm stability or r esolution. Electronically signed by: Tiara Pryor MD (04/29/2020 9:53 AM) [id number]
== END ==
LOC: SURGPAT 08:00
PROVIDERS: ATTEND Orthopaedic Surgery
DX: Z01.818 Encounter for other preprocedural examination (principal); M75.121 Complete rotator cuff tear or rupture of right shoulder, not specified as traumatic
CPT/HCPCS: 36415; 71046; 80048; 82040; 82306; 85025; 85610; 85730; 86140; 87641; 93005

== ENCOUNTER → 2020-05-22 | Outpatient (CLI) | payer MEDICARE, OTHER ==
[2020-05-06 07:00] VITALS: BP 126/79
--- NOTE | 2020-05-22 12:10 | KCIC ---
EXAM: Chest CT without intravenous contrast. HISTORY: Pulmonary mass. TECHNIQUE: Computed tomographic images of the chest were obtained without contrast. Multiplanar refor matting was performed. *One or more of the following individualized dose reduction techniques were utilized for this examina tion: 1. Automated exposure control. 2. Adjustment of the mA and/or kV according to patient size. 3. Use of iterative reconstruction technique. COMPARISON: Chest radiograph dated 04/29/2020. FINDINGS: The heart is normal in size. There is a trace pericardial effusion or pericardial thickenin g. There is calcified atherosclerotic plaque involving the coronary arteries. The aorta is normal in caliber. No pathologically enlarged mediastinal or hilar lymph node is seen. There are fairly symmetr ic prominent bilateral axillary lymph nodes which maintain a benign reniform configuration and are li marlene reactive or physiologic. There is a small cyst with adjacent scarring within the left lung apex likely due to emphysema. There is mild emphysema elsewhere within both lungs. There is lingular groundglass opacity within the late ral left upper lobe, the appearance of which favors atelectasis or scarring. No consolidated infiltra te is seen. There is a 5 mm nodule within the right upper lobe (series 3, image 49). There is a 4 mm nodule within the right lower lobe (series 3, image 129). There is lateral basilar and posterior depe ndent atelectasis. There is no acute finding involving the upper abdomen. There are degenerative chau ges involving the thoracic spine and shoulders. IMPRESSION: 1. Linear and groundglass opacity within the lateral left upper lobe, the appearance of which favors atelectasis or scarring. No consolidated infiltrate is seen. 2. 5 mm and 4 mm nodules within the right upper and lower lobes. Follow-up can be performed in one ye ar if there are risk factors for pulmonary neoplasm. 3. Mild emphysema. 4. Trace pericardial effusion or pericardial thickening. Electronically signed by: Tiara Pryor MD (05/22/2020 12:08 PM) [id number]
== END ==
LOC: KCIC CT 10:48
PROVIDERS: ATTEND Family Medicine
DX: J43.9 Emphysema, unspecified (principal)
CPT/HCPCS: 71250

== ENCOUNTER → 2020-08-26 | Outpatient (CLI) | payer MEDICARE, OTHER ==
[2020-05-06 07:00] VITALS: BP 126/79
[2020-08-26 14:43] LABS: BASO # 0.1 x10^3/uL (0.0-0.2); BASO % 2 % (0-3); EOS # 0.2 x10^3/uL (0.0-0.7); EOS % 2 % (0-3); HEMATOCRIT 36.8 % (36.0-47.0); HEMOGLOBIN 12.3 g/dL (12.0-15.5); LYMPH # 2.4 x10^3/uL (1.0-4.8); LYMPH % 26 % (24-48); MEAN CORPUSCULAR HEMOGLOBIN 28 pg (25-35); MEAN CORPUSCULAR HGB CONC 33 g/dL (31-37); MEAN CORPUSCULAR VOLUME 82 fL (79-100); MONO # 0.7 x10^3/uL (0.0-1.1); MONO % 8 % (0-9); NEUT # 5.7 x10^3/uL (1.8-7.7); NEUT % 63 % (31-73); PLATELET COUNT 287 x10^3/uL (140-400); RED BLOOD COUNT 4.46 x10^6/uL (3.50-5.40); RED CELL DISTRIBUTION WIDTH 14.6 % (11.5-14.5)
[2020-08-26 14:53] LABS: PROTHROMBIN TIME PATIENT 12.8 SEC (11.7-14.0)
[2020-08-26 15:01] LABS: CALCIUM 9.7 mg/dL (8.5-10.1); CREATININE 1.1 mg/dL (0.6-1.0); GFR 59.4; POTASSIUM 4.1 mmol/L (3.5-5.1)
[2020-08-27 09:22] LABS: HEMOGLOBIN A1C 6.8 % (4.8-5.6)
== END ==
LOC: SURGPAT 13:31
PROVIDERS: ATTEND Orthopaedic Surgery
DX: Z01.818 Encounter for other preprocedural examination (principal); M75.101 Unspecified rotator cuff tear or rupture of right shoulder, not specified as traumatic; Z79.899 Other long term (current) drug therapy
CPT/HCPCS: 36415; 80048; 82040; 82306; 83036; 85025; 85610; 85651; 85730; 87641

== ENCOUNTER → 2020-08-27 | Outpatient (CLI) | payer MEDICARE, OTHER ==
[2020-05-06 07:00] VITALS: BP 126/79
[~2020-08-27] MED LIST changes: +REGADENOSON 0.4 MG/5 ML DISP.SYRIN. IV ONE
--- NOTE | 2020-08-28 10:31 | RAD ---
MR#: [id number] Date of Study: 08/27/2020 Ordering Physician: BLOSSOM WEBBER, Referring Physician: MARY BETH TORRES Tech: RT Laurie Gipson) (N) APPROVED REPORT Test Type: Pharmacological Stress Nurse/Tech: Chaparro Warner RN Test Indications: CAD Cardiac History: 3 stents 2014, HTN, DM, x-smoker Medications: See Electronic Medical Record Medical History: See Electronic Medical Record Resting ECG: SR Resting Heart Rate: 74 bpm Resting Blood Pressure: 173/90mmHg Pretest Chest Pain: None Nurse/Tech Notes Lungs CTA, S1S2 Consent: The procedure was explained to the patient in lay terms. Informed consent was witnessed. Cordell eout was entered into psicofxp. History and Stress Test performed by RT Laurie Moyer) (N) Pharm. Details Pharmacologic stress testing was performed using 0.4mg per 5ml of regadenoson given intravenously ove r 7-10 seconds. Stress Symptoms No chest pain or symptoms. POST EXERCISE Reason for Termination: Infusion complete Max HR: 104 bpm Max Blood Pressure: 174/63mmHg Blood Pressure response to exercise: Normal blood pressure response during stress. Heart Rate response to exercise: Normal response Chest Pain: No. Arrhythmia: No. ST Change: No. INTERPRETATION Stress EKG Conclusion: The resting EKG shows a sinus rhythm and mild nonspecific ST-T wave changes. The stress EKG shows no significant changes from baseline. No EKG evidence of stress-induced ischemia. Imaging Protocol IMAGE PROTOCOL: Rest Tc-99m/stress Tc-99m 1 day Rest: Stress: Viability: Radiopharm.Tc99m VowatrmqhFt63f Sestamibi Bskv64mOz 31.4mCi Duration 15min. 15min. Img Date 08/27/2020 08/27/2020 Inj-Img Howj27mcy. 60min. Rest Admin Site:IV - Left AntecubitalAdministrator:RT Laurie Moyer)(N) Stress Admin Site: IV - Left AntecubitalAdministrator: RT Laurie Moyer)(N) STRESS DATA End Diast. Vol.68.0mlAv. Heart Rate96.0bpm LVEDV index BSA36.0mlCardiac Output0.0L/min End Syst. Vol.23.0mlCO Index BSA0.0L/min LVESV index BSA12.0mlMyocardial Efxw772.0g Eject. Kqcwvcfi84.0% Stress Scores Regional WT1.00Summed WT18.00 Regional WM0.00Summed WM4.00 LV Perfusion The stress scans show minimal thinning in the inferior lateral wall. The rest scans show no significant defects. Nuclear imaging shows minimal thinning in the inferior lateral wall which suggestive but not diagnost ic of ischemia. Wall Motion Left ventricular systolic function is normal with an ejection fraction of 65%. LV Perf. Quant 17 Seg. SSS10.00 17 Seg. SRS0.00 17 Seg. SDS10.00 Stress Defect Extent (% LAD)0.00Rest Defect Extent (% LAD)0.00Rev. Defect Extent (% LAD)0.00 Stress Defect Extent (% LCX) 70.00Rest Defect Extent (% LCX)0.00Rev. Defect Extent (% LCX)65.00 Stress Defect Extent (% RCA)0.00Rest Defect Extent (% RCA)0.00Rev. Defect Extent (% RCA)0.00 Stress Defect Extent (% FROY)15.20Rest Defect Extent (% FROY)0.00Rev. Defect Extent (% FROY)14.30 Conclusion 1. No EKG evidence of stress-induced ischemia. 2. Nuclear imaging shows minimal thinning in the inferior lateral wall on stress images which is mild ly suggestive but not diagnostic of ischemia. 3. Left ventricular systolic function is normal. 4. Moderate to moderately low risk Lexiscan nuclear stress test. Signed by : Ryne Henderson MD Electronically Approved : 08/28/2020 10:30:44
== END ==
LOC: NM 10:22
PROVIDERS: ATTEND Internal Medicine Cardiovascular Disease
DX: I25.10 Atherosclerotic heart disease of native coronary artery without angina pectoris (principal); I10 Essential (primary) hypertension; Z87.891 Personal history of nicotine dependence
CPT/HCPCS: 78452; 93017; A9500; J2785

== ENCOUNTER 2020-09-08 10:10 | Observation (INO) | payer MEDICARE, OTHER ==
[2020-08-26 14:32] VITALS: BP 173/84
[2020-09-08] VITALS (9 sets, daily range): BP systolic 142–164; BP diastolic 53–123
[~2020-09-08] VITALS: Ht 160 cm; Wt 85.0 kg
[~2020-09-08 10:10] MED LIST changes: +ACETAMINOPHEN 500 MG TABLET PO PRN; +GABAPENTIN 300 MG CAPSULE. PO PRN; +HYDROmorphone 2 MG/ML VIAL IVP PRN; +IV RINGERS,LACTATED 1000ML 1,000 ML IV SCH; +MELOXICAM 7.5 MG TABLET PO PRN; +MORPHINE SULFATE 2 MG/ML INJ. IVP PRN; +PROCHLORPERAZINE 10 MG/2 ML VIAL. IVP PRN; -REGADENOSON 0.4 MG/5 ML DISP.SYRIN. IV ONE; +TRANEXAMIC ACID 1,000 MG in IV NS 50ML -- 1ST BAG INJ ONE; +TRANEXAMIC ACID 1,000 MG in IV NS 50ML -- 2ND BAG INJ ONE; +fentaNYL PF VIAL 100 MCG/2 ML VIAL IVP PRN
[2020-09-08] MEDS ORDERED: INSULIN LISPRO 100 UNIT/ML 3ML VIAL for OP,RR ONLY. SQ PRN (10:45)
[2020-09-08] MEDS ORDERED: INSULIN LISPRO 100 UNIT/ML 3ML VIAL for OP,RR ONLY. SQ ONE (11:00)
--- NOTE | 2020-09-08 11:12 | PREOP HP ---
DATE OF SERVICE: 09/08/2020 CHIEF COMPLAINT: Right shoulder pain and weakness. HISTORY OF PRESENT ILLNESS: The patient is a 69-year-old female with nearly a year history of atraumatic onset right shoulder pain, recently very much worse, hurting to sleep on the shoulder as well as reaching away from her body. She cannot push, pull, or lift without her arm at her side, she had a remote left shoulder rotator cuff repair, continues to do well and a more recent right rotator cuff repair that has not done as well. PAST MEDICAL HISTORY: Significant for coronary artery disease, hyperlipidemia, diabetes type 2, hypertension, sinusitis, history of shingles, peripheral vascular disease and about 50-55% ejection fraction on echo as of 02/2020. PAST SURGICAL HISTORY: Right great toe fusion, rotator cuff repair on the right, tonsillectomy, bilateral cataract surgery and right carpal tunnel release. FAMILY HISTORY: Heart disease in her mother and father both . SOCIAL HISTORY: She is a former smoker, she quit in 2011, but had about a 60-year pack history of smoking before that. Denies alcohol or drug use. She is and lives with her who is present today. MEDICATIONS: List is extensive and reviewed. ALLERGIES: SHE LISTS ALLERGIES TO ASPIRIN. REVIEW OF SYSTEMS: Denies any chest pain, shortness of breath. Recent febrile illness. Significant only for the ongoing and worsening right shoulder. Again, no focal weakness, numbness or tingling. PHYSICAL EXAMINATION: VITAL SIGNS: Per admission sheet. HEENT: Atraumatic, normocephalic. HEART: Regular rate and rhythm. LUNGS: Clear to auscultation bilaterally. ABDOMEN: Benign. EXTREMITIES: On examination of the right shoulder, she is weak in abduction and to a lesser extent external rotation. No instability either glenohumeral or parascapular. She has positive impingement sign. No tenderness over the acromioclavicular joint on either side. Normal alignment, stability, bilateral elbows and wrists. MRI shows a 5 cm width tear of the infraspinatus and supraspinatus with retraction and beyond the level of the glenoid and fatty atrophy of the muscle bellies as well as degenerative labral tears. IMPRESSION: Massive rotator cuff tear with retraction and atrophy, history of failed rotator cuff repair in the past. TREATMENT PLAN: I went over with her. Based on the degeneration and the failure of her rotator cuff in the past, we talked about reverse shoulder arthroplasty and the rationale previously in clinic and reviewed that today. We talked about the possible concerns of infection, instability, nerve or blood vessel damage, continued pain medical or other anesthetic complications among others. All her questions were answered. She wishes to proceed with surgical evaluation and treatment which will include joint center observation to follow. CELENA DR: Concepcion TID: [id number]
[2020-09-08] MEDS ORDERED: VANCOMYCIN 1 GM VIAL. ONE (11:19)
[2020-09-08] MEDS ORDERED: MIDAZOLAM HCL/PF 2 MG/2 ML VIAL. ONE (11:25)
[2020-09-08] MEDS ORDERED: BUPIVACAINE MPF 0.5% 30 ML VIAL. ONE (11:26)
[2020-09-08] MEDS ORDERED: LIDOCAINE 1% PF 2 ML VIAL. ONE (11:26)
[2020-09-08] MEDS ORDERED: DEXAMETHASONE SOD PHOS 20 MG/5 ML VIAL. ONE (11:26)
[2020-09-08] MEDS ORDERED: EPINEPHrine 1 MG/ML VIAL ONE ×2 (11:26)
[2020-09-08] MEDS ORDERED: LIDOCAINE 2% PF 5 ML VIAL. ONE (12:23)
[2020-09-08] MEDS ORDERED: ONDANSETRON PF 4 MG/2 ML VIAL. ONE (12:23)
[2020-09-08] MEDS ORDERED: SEVOFLURANE 61 TO 120 MINUTES. IH ONE (12:23)
[2020-09-08] MEDS ORDERED: PROPOFOL 10 MG/ML (20ML) VIAL. IV ONE (12:23)
[2020-09-08] MEDS ORDERED: PHENYLEPHRINE in 0.9% NACL PF 1 MG/10 ML SYRINGE. IV ONE (12:40)
[2020-09-08] MEDS ORDERED: ePHEDrine PF IN SALINE 50 MG/10 ML SYRINGE. IV ONE (12:40)
[2020-09-08] MEDS ORDERED: PROCHLORPERAZINE 5 MG TABLET. PO PRN (12:45)
[2020-09-08] MEDS ORDERED: CALCIUM CARBONATE 500 MG TAB.CHEW PO PRN (12:45)
[2020-09-08] MEDS ORDERED: NALOXONE 0.4 MG/ML VIAL. IV PRN (12:45)
[2020-09-08] MEDS ORDERED: IV NORMAL SALINE 1000ML BAG 1,000 ML IV SCH (12:45)
[2020-09-08] MEDS ORDERED: ACETAMINOPHEN 325 MG TABLET. PO PRN (12:45)
[2020-09-08] MEDS ORDERED: DEXTROSE 50% 25 GM / 50ML DISP.SYRIN. IV PRN (12:45)
[2020-09-08] MEDS ORDERED: ZOLPIDEM 5 MG TABLET. PO PRN (12:45)
[2020-09-08] MEDS ORDERED: 0.9 % SODIUM CHLORIDE 10 ML DISP.SYRIN. IV PRN (12:45)
[2020-09-08] MEDS ORDERED: oxyCODONE/APAP 7.5/325 1 TAB TABLET PO PRN (12:45)
--- NOTE | 2020-09-08 15:02 | RAD ---
EXAM: Right shoulder, 3 views. HISTORY: Pain. COMPARISON: None. FINDINGS: 3 views of the right shoulder obtained. There is a right shoulder arthroplasty in expected position. There is surrounding soft tissue gas due to recent surgery. IMPRESSION: Right shoulder arthroplasty in expected position. Electronically signed by: Tiara Pryor MD (09/08/2020 3:00 PM) [id number]
--- NOTE | 2020-09-08 17:01 | PDOC4 ---
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 Postoperative diagnosis: Same with massive retracted rotator cuff tear evidence of anchor and sutures from previous repair and severe degenerative change of the glenohumeral joint Operative procedure: Right reverse shoulder arthroplasty Surgeon: Mary Assist: Nitish lyle Anesthesia: General plus scalene block Estimated blood loss: 100 cc Complications: None Operative indications: Please see my orthopedic clinic note and preoperative history and physical for detailed operative indications Operative text: Patient was identified procedure verified patient placed in supine position on the operating table. After adequate amounts of general anesthesia were administered plus a pre-existing scalene block she was placed in the beachchair position with a T-max headrest and spider arm brown. The right shoulder was then prepped and draped in standard sterile fashion and after timeout was performed patient procedure identified and verified a deltopectoral incision was made extending to a deltopectoral approach with the cephalic vein and deltoid being elevated laterally and the distal aspect of the deltoid elevated bluntly to avoid traction injury. Superior aspect of the pectoralis was released, a massive retracted rotator cuff tear involving the supraspinatus infraspinatus and upper subscapularis was noted. Remainder of the subscapularis was detached and tagged and the proximal humerus was delivered reamed up to a size 10 mm and a guide was used to make a cut in approximately 20 degrees retroversion followed by proximal reaming and a 10 mm trial reverse shoulder stem was placed. Glenohumeral ligaments were then released via electrocautery and a guidewire was placed low centrally in the glenoid with a 10 degrees downward tilt and drilling and reaming carried out to a good bleeding bony surface which was further drilled superiorly to enhance ingrowth and a 15 mm post length baseplate trabecular metal was placed and secured with screws placed into the scapular spine into the base of the coracoid with excellent fixation. These were then locked with locking caps and a 36 mm glenosphere was tapped into place to engage the White taper and trial fit with a +3 standard polyethylene trial liner. This provided excellent stability. It was noted that she had a relatively anteverted glenoid limiting her terminal external rotation but she otherwise had good range of motion and stability with the trial components. Trial stem and spacer were then removed through irrigation carried out normal saline solution and a Chase nonporous 10 mm x 130 mm stem length stem was assem bled on the back table with a 3 mm standard offset polyethylene liner and was impacted into place in proper version. Trialing again noted good stability and motion limited only by her glenoid anteversion. Thorough irrigation again carried out with dilute Betadine solution followed by normal saline solution with pulse lavage and the subscapularis was repaired and upper portion of the pectoralis with max braid suture. 1 g vancomycin was placed in the joint and closure of the fascia with Vicryl suture subcutaneous closure with buried Vicryl suture skin closure with subcuticular Monocryl sterile dressings were applied patient was returned to recovery room stable condition having tolerated procedure well. Nitish abbott assist was present for the procedure and assisted in patient positioning prepping draping retraction closure and dressings ANDERSON CESPEDES MD Sep 08, 2020 17:01
[2020-09-08] MEDS: IV DEXTROSE 5 %-0.45 % NACL 1,000 ML IV SCH ×2 (18:18→22:45)
[2020-09-08] MEDS: FERROUS SULFATE 325 MG TABLET. PO SCH (18:18)
--- NOTE | 2020-09-08 22:10 | NUR ---
Patient has been calling family frequently. Family requested Valium q4h for her. Dr. Hernandez denied the order. Lortab given. Patient is confused to situation and time. Bed alarm on, Side rails upx3 and call light in reach.
[2020-09-08] MEDS: HYDROcodone/APAP 10/325 1 TAB TABLET PO PRN (22:25)
--- NOTE | 2020-09-08 23:00 | NUR ---
Assisted to toilet, uses cane, gait steady, wants to take sling off. Sometimes unsure that she had surgery. Oriented to situation and time.
--- NOTE | 2020-09-09 01:00 | NUR ---
Patient found in bed, has taken NURY hose off and her surgical JAIME dressing was rolled up in her purse. Incision cleansed w/ Chloraprep and Aquacel applied. Patient confused to time and place, "I'm going to shower now." Assisted to toilet then recliner and brought to nurses station. Falls asleep frequently but in short periods. Has stated that her hand "feels itchy".
[2020-09-09] MEDS: HYDROcodone/APAP 10/325 1 TAB TABLET PO PRN ×5 (01:27→19:56)
[2020-09-09 03:10] VITALS: BP 166/73
[2020-09-09] MEDS: MORPHINE SULFATE 2 MG/ML INJ. IV PRN (04:12)
--- NOTE | 2020-09-09 04:15 | NUR ---
Restless, verbally abusing male staff. Attempting to pack suitcase, "looking for scissors", takes sling off. Morphine given IVP. Holding right upper arm and grimacing.
[2020-09-09 05:22] LABS: HEMOGLOBIN 11.5 g/dL (12.0-15.5)
[2020-09-09] MEDS ORDERED: MAGNESIUM HYDROXIDE 2,400 MG/30 ML ORAL.SUSP. PO PRN (06:00)
--- NOTE | 2020-09-09 06:22 | NUR ---
Patient found just outside of room, going into an empty room then contemplating the stairway exit. Became loud and verbally aggressive. Message left with Kathieler, spouse, to come sit w/ patient.
--- NOTE | 2020-09-09 06:55 | NUR ---
Spoke w/ Bambi, pt's [id number], she and are on their way to hospital. Pt found in neighbor's bathroom.
--- NOTE | 2020-09-09 08:38 | NUR ---
Call placed to Dr. Hernandez's office to inform of removal of IV by pt and she will not allow for another one to be replaced. Waiting on Dr. Hernandez's return call.
[2020-09-09] MEDS: MULTIVITAMIN with MINERAL TABLET. PO SCH (08:54)
[2020-09-09] MEDS: FERROUS SULFATE 325 MG TABLET. PO SCH ×2 (08:55→17:45)
[2020-09-09] MEDS ORDERED: BISACODYL 10 MG SUPP.RECT. PR PRN (16:00)
--- NOTE | 2020-09-09 18:01 | PDOC ---
PROGRESS NOTES Date of Service DATE: 09/09/20 TIME: 17:37 Subjective Subjective Problems overnight: Somewhat confused today, her daughters indicate that she did not sleep hardly at all. Nursing reports that she pulled out her IV last night. Is now complaining of increased pain since the block wore off Objective Vital Signs Vital Signs Date Time Temp Pulse Resp B/P (MAP) Pulse Ox O2 Delivery O2 Flow Rate FiO2 09/09/20 05:20 22 Room Air 09/09/20 03:10 97.7 62 166/73 (104) 97 97.7 09/08/20 14:51 10 Physical Exam She has some slight bloody drainage midpoint of the incision intact distal neurovascular status. She has good stability but some pain and tightness on range of motion Labs Laboratory Tests Test 09/08/20 10:39 09/08/20 14:28 09/09/20 03:45 Glucose (Fingerstick) 149 mg/dL (70-99) 131 mg/dL (70-99) Hemoglobin 11.5 g/dL (12.0-15.5) Hematocrit 36.0 % (36.0-47.0) Mean Corpuscular Hemoglobin Concent 32 g/dL (31-37) Laboratory Tests Test 09/09/20 03:45 Hemoglobin 11.5 g/dL (12.0-15.5) Hematocrit 36.0 % (36.0-47.0) Mean Corpuscular Hemoglobin Concent 32 g/dL (31-37) Assessment Assessment POD#1 right reverse shoulder arthroplasty Plan Plan of Care She has some urinary retention and we are going to scan her bladder today, get her up and around see if she does better in terms of her confusion and adjust pain medicines as required Justicifation of Admission Dx: Justifications for Admission: Justification of Admission Dx: N/A Comments: Urinary retention confusion ANDERSON CESPEDES MD Sep 09, 2020 18:01
--- NOTE | 2020-09-09 18:33 | NUR ---
Pt has refused all cares from staff today. Family was here and they provided cares for her. Pt would not take medication from this selling underwriter and daughter provided help and gave them to her. She refused for assessments to be done.
--- NOTE | 2020-09-09 18:37 | NUR ---
Refused for assessments to be completed Addendum: 09/09/20 at 1838 by MAREK GARCIA LPN LPN Amended: Links added.
--- NOTE | 2020-09-09 18:39 | NUR ---
Refused assessments Addendum: 09/09/20 at 1839 by MAREK GARCIA LPN LPN Amended: Links added.
[2020-09-09 19:00] VITALS: BP 93/53
[2020-09-09] MEDS: traMADol 50 MG TABLET PO PRN (19:29)
[2020-09-09 23:00] VITALS: BP 155/61
[2020-09-10] MEDS: diazePAM 5 MG TABLET PO PRN ×2 (02:22→08:46)
[2020-09-10] MEDS: HYDROcodone/APAP 10/325 1 TAB TABLET PO PRN ×2 (02:23→08:50)
[2020-09-10] MEDS: MORPHINE SULFATE 2 MG/ML INJ. IV PRN ×3 (02:40→10:14)
[2020-09-10] MEDS: traMADol 50 MG TABLET PO PRN (05:54)
[2020-09-10 07:00] VITALS: BP 144/54
[2020-09-10 08:23] LABS: HEMATOCRIT 32.7 % (36.0-47.0); HEMOGLOBIN 10.8 g/dL (12.0-15.5)
[2020-09-10] MEDS: MULTIVITAMIN with MINERAL TABLET. PO SCH (08:47)
[2020-09-10] MEDS: FERROUS SULFATE 325 MG TABLET. PO SCH (08:47)
[2020-09-10 11:00] VITALS: BP 137/67
--- NOTE | 2020-09-10 12:41 | NUR ---
Pt discharged home with family today. Wheeled out with Candido LOCK in a wheelchair with all belongings with patient. Discharge instructions and Dr Hernandez's post-op shoulder d/c instructions given to patient, as well as her and daughter. Discharge paperwork was signed by her Cueler. Upon leaving the unit patient took off her shoulder sling and refused to put it back on.
== END 2020-09-10 12:50 | disposition home or self-care (01) ==
LOC: SURG 10:10 → 4 NORTH 12:39
PROVIDERS: ADMIT Orthopaedic Surgery; ATTEND Orthopaedic Surgery
DX: M75.101 Unspecified rotator cuff tear or rupture of right shoulder, not specified as traumatic (principal); I25.10 Atherosclerotic heart disease of native coronary artery without angina pectoris; I10 Essential (primary) hypertension; E11.9 Type 2 diabetes mellitus without complications; M19.011 Primary osteoarthritis, right shoulder; E78.5 Hyperlipidemia, unspecified; Z86.19 Personal history of other infectious and parasitic diseases; Z87.891 Personal history of nicotine dependence; Z96.611 Presence of right artificial shoulder joint
CPT/HCPCS: 23472; 36415; 73030; 82962; 85014; 85018; 86850; 86900; 86901; 96365; 96366; 96375; 96376; 97110; 97116; 97162; 97165; 97530; 97535; A4565; A4928; A4930; A6550; C1713; C1776; G0378; G0379; J0171; J0690; J1100; J1815; J2250; J2270; J2370; J2405; J2704; J3370; J3490; J7042; A4322

== ENCOUNTER → 2021-02-18 | Outpatient (CLI) | payer MEDICARE, OTHER ==
[~2021-02-18] MED LIST changes: -ACETAMINOPHEN 500 MG TABLET PO PRN; +CICL6.6S18 TP; -CICL6.6S3 TP; +CYCL10TA19 PO; -CYCL10TA2 PO; -GABAPENTIN 300 MG CAPSULE. PO PRN; -GUAI600T6 PO; +GUAI600T80 PO; -HYDROmorphone 2 MG/ML VIAL IVP PRN; -IV RINGERS,LACTATED 1000ML 1,000 ML IV SCH; -MELOXICAM 7.5 MG TABLET PO PRN; -MORPHINE SULFATE 2 MG/ML INJ. IVP PRN; -PROCHLORPERAZINE 10 MG/2 ML VIAL. IVP PRN; +TIZA-75 PO; -TIZA4TAB2 PO; -TRANEXAMIC ACID 1,000 MG in IV NS 50ML -- 1ST BAG INJ ONE; -TRANEXAMIC ACID 1,000 MG in IV NS 50ML -- 2ND BAG INJ ONE; -fentaNYL PF VIAL 100 MCG/2 ML VIAL IVP PRN
--- NOTE | 2021-02-18 11:41 | RAD ---
MR#: [id number] Date of Study: 02/18/2021 Ordering Physician: BLOSSOM WEBBER, Referring Physician: BLOSSOM WEBBER, Tech: Denise Hernandez RVT, [place] APPROVED REPORT Patient Location: OUT-PATIENT Indications Claudication: Rest Pain: Risk Factors Hypertension Diabetes Smoking VELOCITY AND DOPPLER WAVEFORM ANALYSIS RIGHT cm/secWaveformSeverity LEFT cm/secWaveform Severity dCFA 153.0TriphasicdCFA 158.0Triphasic Prof Fem Art. 160.0BiphasicProf Fem Art. 160.0Biphasic Fem Art Prox. 215.0BiphasicFem Art Prox. 152.0Biphasic Fem Art Mid. 133.0BiphasicFem Art Mid. 198.0Biphasic Fem Art Dist. 305.0BiphasicFem Art Dist. 147.0Biphasic Pop Art(Fossa) 89.0BiphasicPop Art(AK) 105.0Biphasic ROTOGRAVURE PRESS OPERATOR Prox. 29.0BiphasicPTA Prox. 35.0Biphasic ROTOGRAVURE PRESS OPERATOR Dist. 40.0BiphasicPTA Dist. 45.0Biphasic Per Art Dist.32.0BiphasicPer Art Dist.42.0Biphasic ABDIEL Prox. 79.0BiphasicATA Prox. 79.0Biphasic DPA 45BiphasicDPA 45Biphasic Findings Grayscale images of the bilateral lower extremity arterial vessels demonstrates moderate to severe di ffuse atherosclerotic plaque. On the right side there is likely a greater than 50% stenosis involving the distal SFA. The velociti es in the distal SFA appear to increase compared to 2019. There is diminished flow with mostly monop hasic and biphasic waveforms below the knee. There is three-vessel runoff nonetheless. In the left side there are mostly triphasic and biphasic waveforms. There is probably a mild less th an 50% stenosis involving the distal SFA. There is three-vessel runoff with biphasic waveforms and n ormal velocities. Critical Notification Critical Value: No <Conclusion> 1. Greater than 50% stenosis involving the mid to distal SFA with diminished waveforms below the kne e with three-vessel runoff. 2. Probable mild to moderate less than 50% stenosis involving the left SFA. Signed by : Raheem Gandhi, Electronically Approved : 02/18/2021 11:40:46
--- NOTE | 2021-02-18 15:36 | CARD ---
MR#: [id number] Date of Study: 02/18/2021 Ordering Physician: BLOSSOM WEBBER, Referring Physician: BLOSSOM WEBBER, Tech: Ethel Wade [facility] APPROVED REPORT EXAM: Two-dimensional and M-mode echocardiogram with Doppler and color Doppler. Other Information Quality : AverageHR: 65bpm INDICATION Cardiac Disease: CAD RISK FACTORS Hypertension Hyperlipidemia Diabetes 2D DIMENSIONS RVDd3.5 (2.9-3.5cm)Left Atrium(2D)2.9 (1.6-4.0cm) IVSd0.8 (0.7-1.1cm)Aortic Root(2D)2.8 (2.0-3.7cm) LVDd5.0 (3.9-5.9cm)LVOT Diameter2.0 (1.8-2.4cm) PWd0.9 (0.7-1.1cm)LVDs4.3 (2.5-4.0cm) FS (%) 14.2 %SV36.1 ml LVEF(%)30.2 (>50%) Aortic Valve AoV Peak Go.167.2cm/sAoV VTI37.1cm AO Peak GR.11.2mmHgLVOT Peak Go.100.5cm/s LVOT VTI 24.06cmAO Mean GR.6mmHg ZO (VMAX)1.63ot3SET (VTI)2.04cm2 Mitral Valve MV E Kfpjgqth56.7cm/sMV DECEL KSRM584dy MV A Iwdngeem05.5cm/sMV E Mean Gr.2mmHg MV VEV07edW/A Ratio0.8 MVA (PHT)3.02cm2 TDI E/Lateral E'9.0E/Medial E'9.2 Pulmonary Valve PV Peak Lqscysxe64.4cm/sPV Peak Grad.3mmHg Tricuspid Valve TR P. Sqjvvfco171ii/sRAP [id number] TR Peak Gr.63uxAvLSFJ78ohMw LEFT VENTRICLE The left ventricle is normal size. There is normal left ventricular wall thickness. The left ventricu lar systolic function is normal and the ejection fraction is within normal range. The Ejection Fracti on is 50-55%. There is normal LV segmental wall motion. Transmitral Doppler flow pattern is Grade I-a bnormal relaxation pattern. RIGHT VENTRICLE The right ventricle is normal size. There is normal right ventricular wall thickness. The right ventr icular systolic function is normal. ATRIA The left atrium size is normal. The right atrium size is normal. The interatrial septum is intact wit h no evidence for an atrial septal defect or patent foramen ovale as noted on 2-D or Doppler imaging. AORTIC VALVE The aortic valve is normal in structure and function. Doppler and Color Flow revealed no significant aortic regurgitation. There is no significant aortic valvular stenosis. Calculated aortic valve area is 2.55 cm2 with maximum pressure gradient of 13 mmHg and mean pressure gradient of 7 mmHg. MITRAL VALVE The mitral valve is normal in structure and function. There is no evidence of mitral valve prolapse. There is no mitral valve stenosis. Doppler and Color-flow revealed trace to mild mitral regurgitation . TRICUSPID VALVE The tricuspid valve is normal in structure and function. Doppler and Color Flow revealed trace tricus pid regurgitation with an estimated PAP of 31 mmHg. There is no tricuspid valve stenosis. PULMONIC VALVE The pulmonic valve is not well visualized. Doppler and Color Flow revealed trace pulmonic valvular re gurgitation. There is no pulmonic valvular stenosis. GREAT VESSELS The aortic root is normal in size. The ascending aorta is normal in size. The IVC is normal in size a nd collapses >50% with inspiration. PERICARDIAL EFFUSION There is no evidence of significant pericardial effusion. Critical Notification Critical Value: No <Conclusion> The left ventricular systolic function is normal and the ejection fraction is within normal range. Th e Ejection Fraction is 50-55%. There is normal LV segmental wall motion. Signed by : Raheem Gandhi, Electronically Approved : 02/18/2021 15:35:28
== END ==
LOC: ECHO 08:46
PROVIDERS: ATTEND Internal Medicine Cardiovascular Disease
DX: I34.0 Nonrheumatic mitral (valve) insufficiency (principal); I70.203 Unspecified atherosclerosis of native arteries of extremities, bilateral legs; I25.10 Atherosclerotic heart disease of native coronary artery without angina pectoris
CPT/HCPCS: 93306; 93925

== ENCOUNTER 2021-03-09 06:52 | Outpatient (CLI) | payer MEDICARE, OTHER ==
[~2021-03-09] VITALS: Ht 160 cm; Wt 73.2 kg
[2021-03-09] VITALS (15 sets, daily range): BP systolic 101–153; BP diastolic 59–80
[2021-03-09] MEDS ORDERED: IODIXANOL 320 MG/ML 100 ML VIAL. ONE (07:34)
[2021-03-09 07:52] LABS: HEMATOCRIT 34.9 % (36.0-47.0); HEMOGLOBIN 11.2 g/dL (12.0-15.5); RED BLOOD COUNT 4.12 x10^6/uL (3.50-5.40); RED CELL DISTRIBUTION WIDTH 15.5 % (11.5-14.5); WHITE BLOOD COUNT 9.6 x10^3/uL (4.0-11.0)
[2021-03-09] MEDS ORDERED: VERAPAMIL 5 MG/2 ML VIAL. ONE (08:00)
[2021-03-09] MEDS ORDERED: NITROGLYCERIN 200 MCG/2 ML SYRINGE FOR CATH/VASC LAB. ONE (08:00)
[2021-03-09] MEDS ORDERED: HEPARIN for IV BOLUS 10,000 UNIT/10 ML VIAL. ONE (08:00)
[2021-03-09] MEDS ORDERED: fentaNYL PF VIAL 100 MCG/2 ML VIAL ONE ×2 (08:02→09:33)
[2021-03-09] MEDS ORDERED: MIDAZOLAM HCL/PF 2 MG/2 ML VIAL. ONE (08:02)
[2021-03-09 08:13] LABS: CALCIUM 9.5 mg/dL (8.5-10.1); GFR 66.1; POTASSIUM 3.5 mmol/L (3.5-5.1)
[2021-03-09] MEDS ORDERED: IODIXANOL 320 MG/ML 100 ML VIAL. IART ONE (08:15)
[2021-03-09] MEDS ORDERED: NITROGLYCERIN 200 MCG/2 ML SYRINGE FOR CATH/VASC LAB. IART ONE (08:15)
[2021-03-09] MEDS ORDERED: VERAPAMIL 5 MG/2 ML VIAL. IART ONE (08:15)
[2021-03-09] MEDS ORDERED: HEPARIN for IV BOLUS 10,000 UNIT/10 ML VIAL. IART ONE (08:15)
[2021-03-09] MEDS ORDERED: MIDAZOLAM HCL/PF 2 MG/2 ML VIAL. IV ONE (08:15)
[2021-03-09] MEDS ORDERED: fentaNYL PF VIAL 100 MCG/2 ML VIAL IV ONE (08:15)
[2021-03-09] MEDS ORDERED: LIDOCAINE 1% PF 2 ML VIAL. INJ ONE (08:15)
[2021-03-09] MEDS ORDERED: FLUO10CA17 PO (08:16)
[2021-03-09] MEDS ORDERED: DONE10TA7 PO (08:16)
[2021-03-09] MEDS ORDERED: METF10007 PO (08:16)
[2021-03-09] MEDS ORDERED: LIDOCAINE 1% Multi-Dose 20 ML VIAL. ONE (08:28)
[2021-03-09] MEDS ORDERED: LIDOCAINE 1% Multi-Dose 20 ML VIAL. INJ ONE (08:30)
[2021-03-09] MEDS ORDERED: diphenhydrAMINE 50 MG/ML VIAL ONE (08:54)
[2021-03-09] MEDS ORDERED: diphenhydrAMINE 50 MG/ML VIAL IVP ONE (09:00)
[2021-03-09] MEDS ORDERED: HEPARIN for IV BOLUS 10,000 UNIT/10 ML VIAL. IV ONE (09:15)
--- NOTE | 2021-03-09 09:35 | PDOC ---
MODERATE SEDATION ASSESSMENT RISKS/ALTERNATIVES Risks/Alternatives Risks and alternatives of this type of sedation and procedure discussed with: RISK/ALTERNATIVES: Patient H & P ON CHART H & P H & P on chart and reviewed for co-morbid conditions and appropriate labs. H&P ON CHART: Yes STATUS PREG STATUS ASSESSED: N/A MEDS/ALLERGIES REVIEWED Meds/Allergies Reviewed Medications and Allergies including time and route of recently administered narcotics and sedatives. MEDS/ALLERGIES REVIEWED: Yes ASA RATING ASA RATING: III AIRWAY ASSESSMENT Airway Assessment Airway patency, oral function limitations, presence of caps, crowns, dentures, partials, and ability to extend neck assessed. AIRWAY ASSESSMENT: Yes MALLAMPATI SCORE MALLAMPATI SCORE: II PRE-SEDATION ASSESSMENT PRE-SEDATION ASSESSMENT: Yes BLOSSOM WEBBER MD Mar 09, 2021 09:35
--- NOTE | 2021-03-09 10:33 | CARD ---
MR#: [id number] Date of Study: 03/09/2021 Ordering Physician: BLOSSOM MARIA, Referring Physician: BLOSSOM MARIA, Tech: RT Radha(R) APPROVED REPORT Patient StatusOUT-PATIENT Laboratory Apparatus Glass Blower: RT Radha(R) Procedure(s) performed: 1. Aortogram with bilateral lower extremity runoff 2. Successful balloon SPACER TYPE BAR AND SEGMENT to right superficial femoral artery FL TIME: 6.5 MIN DOSE: 47 GYCM2 CONTRAST: 80 ML MODERATE SEDATION: 75 MINUTES INDICATION FOR PROCEDURE The indication(s) include : Peripheral artery disease with claudication and abnormal arterial duplex scan. CASE TECHNIQUE After explaining the risks, benefits, and alternative options, informed consent was obtained from the patient. IV conscious sedation was used throughout procedure with appropriate monitoring and was per formed in the presence of a registered nurse who was an independent trained observer other than the ammon perkins performing the procedure. During this case, Fluoroscopy and low osmolar contrast were used f or imaging. Specimen(s) Removed: No Estimated Blood loss: 15 cc's. PROCEDURE NARRATIVE After explaining the risk, benefits and alternative options, informed consent was obtained from patie nt patient was brought to the cardiac Vest Finisher and her left groin was prepped and draped in the usual fashion. 20 cc of 2% lidocaine was infiltrated in the skin and subcutaneous tissues for local anest hesia. Arterial access was obtained in the left common femoral artery and 5 Spanish sheath was insert ed. 5 Spanish Omni Flush catheter was then positioned in the abdominal aorta and aortoiliac angiograp hy was performed. The catheter was advanced into the right external iliac artery and selective right lower extremity angiography was performed. Contrast injections were performed through the sheath in the left groin for selective left lower extremity angiography. The following findings were noted: FINDINGS 1. No significant stenosis involving the distal descending aorta 2. No significant stenosis involving bilateral common and external iliac arteries 3. The right common femoral artery did not show any significant stenosis. The left common femoral a rtery showed 80% stenosis at the arterial access site, uncertain as to the cause being dissection tiffany daniel eccentric plaque. 4. The right superficial femoral artery showed 80% calcified stenosis involving the distal segment. The left superficial femoral artery showed 80% stenosis in the right proximal segment. 5. No significant stenosis involving the popliteal arteries bilaterally. 6. There is good three vessel runoff below the knee bilaterally. INTERVENTION The sheath in the left groin was exchanged to a 5 Spanish destination sheath which was then advanced o tiffany the aortic negrita and the tip was positioned in the proximal segment of the right superficial fem oral artery. The stenosis in the distal segment was crossed with a 0.014 inch command ES guidewire. This was then dilated with 5.0 x 18 mm [employer] [place] balloon. Follow-up angiography showed resoluti on of the stenosis to 0% with good distal flow. Patient tolerated the procedure well. Hemostasis wa s achieved using manual compression. There were no immediate complications. Conclusion 1. Bilateral lower extremity peripheral artery disease as described above involving the right superf icial femoral, left common femoral and left superficial femoral arteries. 2. Successful balloon SPACER TYPE BAR AND SEGMENT to the right superficial femoral artery Recommendations Vascular risk factor modification including regular exercise regimen Plan for left lower extremity SPACER TYPE BAR AND SEGMENT in 2-4 weeks Signed by : Blossom Maria, Electronically Approved : 03/09/2021 10:32:39
--- NOTE | 2021-03-09 13:55 | NUR ---
Discharge Note: [facility] Discharge instructions and discharge home medications reviewed with Patient and a copy given. All questions have been answered and understanding verbalized. The following instructions and handouts were given: groin site care and adult moderate sedation Discontinued lines and drains: Peripheral IV intact & left groin site dressing changed and was clean,dry,intact/no bleeding & soft. Patient discharged to Home or Self Care withSpousevia Wheelchair.
== END 2021-03-09 14:00 | disposition home or self-care (01) ==
LOC: CCL 06:52
PROVIDERS: ATTEND Internal Medicine Cardiovascular Disease
DX: I73.9 Peripheral vascular disease, unspecified (principal); I25.10 Atherosclerotic heart disease of native coronary artery without angina pectoris; I10 Essential (primary) hypertension; E78.00 Pure hypercholesterolemia, unspecified; E11.9 Type 2 diabetes mellitus without complications; E66.9 Obesity, unspecified; K21.9 Gastro-esophageal reflux disease without esophagitis; Z87.891 Personal history of nicotine dependence; Z79.84 Long term (current) use of oral hypoglycemic drugs; Z79.899 Other long term (current) drug therapy; Z98.890 Other specified postprocedural states; Z88.8 Allergy status to other drugs, medicaments and biological substances; Z82.49 Family history of ischemic heart disease and other diseases of the circulatory system
CPT/HCPCS: 36415; 37224; 75625; 75716; 80048; 85027; 85347; 99152; 99153; C1725; C1769; C1894; J1200; J1644; J2250; J3010; J3490; Q9967

== ENCOUNTER 2021-04-02 08:43 | Outpatient (CLI) | payer MEDICARE, OTHER ==
[~2021-04-02] VITALS: Ht 160 cm; Wt 73.0 kg
[2021-04-02] VITALS (9 sets, daily range): BP systolic 116–167; BP diastolic 63–90
[~2021-04-02 08:43] MED LIST changes: +DONE10TA7 PO; +FLUO10CA17 PO
[2021-04-02 09:39] LABS: CALCIUM 8.8 mg/dL (8.5-10.1); GFR 66.1; POTASSIUM 3.9 mmol/L (3.5-5.1)
[2021-04-02 09:41] LABS: HEMATOCRIT 31.3 % (36.0-47.0); HEMOGLOBIN 10.4 g/dL (12.0-15.5); RED BLOOD COUNT 3.67 x10^6/uL (3.50-5.40); RED CELL DISTRIBUTION WIDTH 15.5 % (11.5-14.5); WHITE BLOOD COUNT 8.1 x10^3/uL (4.0-11.0)
[2021-04-02 09:46] LABS: PROTHROMBIN TIME PATIENT 12.5 SEC (11.7-14.0)
--- NOTE | 2021-04-02 09:47 | PDOC ---
MODERATE SEDATION ASSESSMENT RISKS/ALTERNATIVES Risks/Alternatives Risks and alternatives of this type of sedation and procedure discussed with: RISK/ALTERNATIVES: Patient H & P ON CHART H & P H & P on chart and reviewed for co-morbid conditions and appropriate labs. H&P ON CHART: Yes STATUS PREG STATUS ASSESSED: N/A MEDS/ALLERGIES REVIEWED Meds/Allergies Reviewed Medications and Allergies including time and route of recently administered narcotics and sedatives. MEDS/ALLERGIES REVIEWED: Yes ASA RATING ASA RATING: II AIRWAY ASSESSMENT Airway Assessment Airway patency, oral function limitations, presence of caps, crowns, dentures, partials, and ability to extend neck assessed. AIRWAY ASSESSMENT: Yes MALLAMPATI SCORE MALLAMPATI SCORE: II PRE-SEDATION ASSESSMENT PRE-SEDATION ASSESSMENT: Yes BLOSSOM WEBBER MD Apr 02, 2021 09:47
[2021-04-02] MEDS ORDERED: LIDOCAINE 1% PF 2 ML VIAL. INJ ONE (11:00)
[2021-04-02] MEDS ORDERED: NITROGLYCERIN 200 MCG/2 ML SYRINGE FOR CATH/VASC LAB. IART ONE (11:00)
[2021-04-02] MEDS ORDERED: IODIXANOL 320 MG/ML 100 ML VIAL. IART ONE (11:00)
[2021-04-02] MEDS ORDERED: VERAPAMIL 5 MG/2 ML VIAL. IART ONE (11:00)
[2021-04-02] MEDS ORDERED: fentaNYL PF VIAL 100 MCG/2 ML VIAL IV ONE (11:00)
[2021-04-02] MEDS ORDERED: MIDAZOLAM HCL/PF 2 MG/2 ML VIAL. IV ONE (11:00)
[2021-04-02] MEDS ORDERED: HEPARIN for IV BOLUS 10,000 UNIT/10 ML VIAL. IART ONE (11:00)
--- NOTE | 2021-04-02 13:07 | CARD ---
MR#: [id number] Date of Study: 04/02/2021 Ordering Physician: BLOSSOM MARIA, Referring Physician: BLOSSOM MARIA, Tech: Charlotte De Dios RT(R) APPROVED REPORT Patient StatusOUT-PATIENT Head Cd Reactor Operator: Charlotte De Dios RT(R) Procedure(s) performed: Left lower extremity angiography MODERATE SEDATION TIME: 34 MINUTES FLUORO TIME: 5.4 MIN DOSE: 31.2GYCM2 CONTRAST: 33CC VISI INDICATION FOR PROCEDURE The indication(s) include : 70-year-old female with symptomatic peripheral artery disease recently un derwent STOCKROOM SUPERVISOR to right superficial femoral artery. She was noted to have significant stenosis versus sp asm versus dissection involving the left common femoral artery at that time. She presented today for possible staged angioplasty.. CASE TECHNIQUE After explaining the risks, benefits, and alternative options, informed consent was obtained from the patient. IV conscious sedation was used throughout procedure with appropriate monitoring and was per formed in the presence of a registered nurse who was an independent trained observer other than the ammon perkins performing the procedure. During this case, Fluoroscopy and low osmolar contrast were used f or imaging. Specimen(s) Removed: No Estimated Blood loss: 15 cc's. PROCEDURE NARRATIVE After explaining the risk, benefits and alternative options, informed consent was obtained from jacintae nt. Patient was brought to the cardiac Crisis Manager and her left wrist was prepped and draped in the usu al fashion. Arterial access was obtained in the left radial artery and a 6 Slovak sheath was inserte d. A 4 Slovak Flexiroam R2P PV multicurve catheter was then advanced with fluoroscopic guidance and wit h the tip position in the left common iliac artery, selective left lower extremity angiography was pe rformed. Patient tolerated the procedure well. Hemostasis was achieved using TR band. There were n o immediate complications FINDINGS 1. No significant stenosis involving the left common iliac artery. 2. The left external iliac artery showed nonflow limiting dissection without any significant stenosi s. 3. No significant stenosis involving left common femoral artery. 4. The left superficial femoral artery showed 50% stenosis in the very proximal segment. The deep f emoral artery did not show any significant stenosis. 5. No significant stenosis involving the left popliteal artery. There is three-vessel runoff below the knee. 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 Recommendations Vascular risk factor modification Signed by : Blossom Maria, Electronically Approved : 04/02/2021 13:07:23
--- NOTE | 2021-04-02 13:19 | NUR ---
pt ambulated and tolerated PO. TR band dc'd. Armboard reapplied. PIVdc'd. Discharge instructions reviewed with family and patient. Pt discharged to home in private vehicle
== END 2021-04-02 13:23 | disposition home or self-care (01) ==
LOC: CCL 08:43
PROVIDERS: ATTEND Internal Medicine Cardiovascular Disease
DX: I73.9 Peripheral vascular disease, unspecified (principal); I25.10 Atherosclerotic heart disease of native coronary artery without angina pectoris; I10 Essential (primary) hypertension; E78.00 Pure hypercholesterolemia, unspecified; K21.9 Gastro-esophageal reflux disease without esophagitis; E11.9 Type 2 diabetes mellitus without complications; E66.9 Obesity, unspecified; M19.90 Unspecified osteoarthritis, unspecified site; Z87.891 Personal history of nicotine dependence; Z79.84 Long term (current) use of oral hypoglycemic drugs; Z79.899 Other long term (current) drug therapy; Z98.890 Other specified postprocedural states; Z88.8 Allergy status to other drugs, medicaments and biological substances
CPT/HCPCS: 36245; 36415; 75710; 80048; 85027; 85610; 99152; 99153; C1769; C1887; C1894; J1644; J2250; J3010; J3490; Q9967